=== PATIENT | female | born 1965 | race Caucasian/White ===

== ENCOUNTER 2017-01-27 02:28 | Emergency (ER) | payer SELFPAY ==
[~2017-01-27] VITALS: Ht 167.6 cm; Wt 80.9 kg
[2017-01-27 02:33] VITALS: Ht 167.6 cm; Wt 80.9 kg
[2017-01-27] MEDS ORDERED: SOD CHLORIDE 0.9% 1,000 ML IV STA (03:30)
[2017-01-27] MEDS ORDERED: LIDOCAINE/MYLANTA 40 ML BTL PO STA (03:30)
[2017-01-27] MEDS ORDERED: morphine 4 MG/ML VIAL IV STA (03:30)
[2017-01-27] MEDS ORDERED: FAMOTIDINE 20 MG INJ IV STA (03:30)
[2017-01-27] MEDS ORDERED: ONDANSETRON 4 MG INJ IV STA (03:30)
== END 2017-01-27 03:30 | disposition left against medical advice (07) ==
LOC: E/R 02:28
DX: Z53.21 Procedure and treatment not carried out due to patient leaving prior to being seen by health care provider (principal)
CPT/HCPCS: J7030